=== PATIENT | male | born 1990 | race Two or more races ===

== ENCOUNTER 2024-12-17 11:19 | Emergency (ER) | payer OTHER ==
[~2024-12-17] VITALS: Ht 157.5 cm; Wt 71.4 kg
[2024-12-17 11:22] VITALS: BP 123/52; PULSE 95; RESP 16; TEMP 97.9; O2SAT 98
--- NOTE | 2024-12-17 16:16 | ED.PDOC ---
Arturo. trauma (HPI) HPI Comments Deandre Griffith is a 34-year-old male, with no relevant past medical history. The patient came to the ED with a chief complaint of 2 weeks of back pain, 4/10, dull, that started after a fall. 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 The patient denies head trauma, hitting other part of his body, loss of consciousness, headache, chest pain, abdominal pain, extremity pain or other symptoms. Today, due to persistence of the pain he decided to visit the ED. In the ED the patient is alert and oriented but he has a strong alcohol smell, the patient reports he has been drinking and smoking marijuana. The patient will be evaluated, Xrays has been ordered. Chief Complaint: Fall Injury Time Seen by MD: 13:34 Reviewed notes: Nurses Notes, Medications, Allergies Allergies: Coded Allergies: NO KNOWN ALLERGIES (Unverified , 12/17/24) Information Source: Patient Mode of Arrival: Ambulatory Severity: Mild Timing: Weeks Duration: Since onset Location: Back Mechanism: Blunt trauma Associated signs and symtoms: ETOH Past Medical History PAST MEDICAL HISTORY: Denies Surgical History: Denies all surgeries Family History Family History: Reviewed,noncontributory to illness Social History Smoker: Non-Smoker Alcohol: Heavy Drugs: Marijuana Lives In: Home Constitutional: denies: chills, diaphoresis, fatigue, fever, malaise, sweats, weakness, others EENTM: denies: blurred vision, double vision, ear bleeding, ear discharge, ear drainage, ear pain, ear ringing, eye pain, eye redness, hearing loss, mouth pain, mouth swelling, nasal discharge, nose bleeding, nose congestion, nose pain, photophobia, tearing, throat pain, throat swelling, voice changes, others Respiratory: denies: cough, hemoptysis, orthopnea, SOB at rest, shortness of breath, SOB with excertion, stridor, wheezing, others Cardiovascular: denies: chest pain, dizzy spells, diaphoresis, Dyspnea on exertion, edema, irregular heart beat, left arm pain, lightheadedness, palpitations, PND, syncope, others Gastrointestinal: denies: abdomen distended, abdominal pain, blood streaked bowels, constipated, diarrhea, dysphagia, difficulty swallowing, hematemesis, melena, nausea, poor appetite, poor fluid intake, rectal bleeding, rectal pain, vomiting, others Genitourinary: denies: burning, dysuria, flank pain, frequency, hematuria, incontinence, penile discharge, penile sore, pain, testicle pain, testicle swelling, urgency, others Neurological: denies: dizziness, fainting, headache, left sided numbness, left sided weakness, numbness, paresthesia, pre-existing deficit, right sided numbness, right sided weakness, seizure, speech problems, tingling, tremors, weakness, others Musculoskeletal: reports: back pain; denies: gout, joint pain, joint swelling, muscle pain, muscle stiffness, neck pain, others Integumetry: denies: bruises, change in color, change in hair/nails, dryness, laceration, lesions, lumps, rash, wounds, others Allergic/Immunocompromised: denies: Difficulty Healing, Frequent Infections, Hives, Itching, others Hematologic/Lymphatic: denies: anemia, blood clots, easy bleeding, easy br uising, swollen glands, others Endocrine: denies: excessive hunger, excessive sweating, excessive thirst, excessive urination, flushing, intolerance to cold, intolerance to heat, unexplained weight gain, unexplained weight loss, others Psychiatric: denies: anxiety, bipolar disorder, depression, hopeless, panic disorder, schizophrenia, sleepless, suicidal, others Physical Exam General Appearance: No Apparent Distress, Normal HEENT: Normal ENT Inspection, Pharynx Normal, TMs Normal, Other (conjunctival injection) Neck: Full Range of Motion, Non-Tender, Normal, Normal Inspection Respiratory: Chest Non-Tender, Lungs Clear, No Accessory Muscle Use, No Respiratory Distress, Normal Breath Sounds Cardiovascular: No Edema, No JVD, No Murmur, No Gallop, Normal Peripheral Pulses, Regular Rate/Rhythm Breast Exam: Deferred Gastrointestinal: No Organomegaly, Non Tender, No Pulsatile Mass, Normal Bowel Sounds, Soft Genitalia: Deferred Pelvic: Deferred Rectal: Deferred Extremities: No calf tenderness, Normal capillary refill, Normal inspection, Normal range of motion, Non-tender, No pedal edema, Other (Back: inspection: no brusing or skin abrasion, palpation: no tender to palpation, ROM: adecuate range of motion, normal gait. 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 ) Cerebellar Function: Normal Reflexes: Normal Skin: Dry, Normal Color, Warm Lymphatic: No Adenopathy Was a procedure done? Was a procedure done?: No Differential Diagnosis Multiple Trauma: Contusion, Other (back muscular spasm ) Neck Injury: N/A X-Ray, Labs, Meds, VS Vital Signs Date Time Temp Pulse Resp B/P (MAP) Pulse Ox O2 Delivery O2 Flow Rate FiO2 12/17/24 11:22 97.9 95 16 123/52 98 97.9 X-Ray, Labs, Meds, VS Comment 13:00 The patient was called to be re-evaluated. The patient did not respond. 14:00 The patient was called to be re-evaluated. I called the patient on a second time, the patient did not respond. 15:00 The patient was called to be re-evaluated. I called the patient on a third time, the patient did not respond. Time of 1ST Reevaluation: 13:00 Reevaluation 1ST: N/A Time of 2ND Reevaluation: 14:00 Reevaluation 2ND: Did not responded Time of 3RD Reevaluation: 15:05 Reevaluation 3RD: The patient eloped Patient Education/Counseling: Other (The patient eloped) Family Education/Counseling: Other (the patient eloped) Departure 1 Departure Time of Disposition: 15:05 Impression: Primary Impression: Eloped from emergency department Disposition: 07 LEFT AWOL/ELOPED Condition: Other (Unknown, the patient eloped ) Comments Goals of care discussed with the patient > 35 min. Discussed plan of care with Dr. Warren Code status: Full code PCP: Not established. The patient was called for reassessment by nurses, radiology team and myself, th e patient did not answer in more than 3 occasion. I have reported to Dr. Warren that the patient has eloped. Critical Care Note Critical Care Time?: No Stability Stability form required: No Heart Score Heart Score: Heart Score Response (Comments) Value History N/A 0 EKG N/A 0 Age N/A 0 Risk Factors N/A 0 Troponin N/A 0 Total 0 GET,DANIAL RESIDENT Dec 17, 2024 16:16
== END 2024-12-17 13:00 | disposition left against medical advice (07) ==
LOC: ER 11:22
DX: M54.9 Dorsalgia, unspecified (principal); F12.90 Cannabis use, unspecified, uncomplicated; F10.90 Alcohol use, unspecified, uncomplicated; Y90.9 Presence of alcohol in blood, level not specified